=== PATIENT | female | born 1980 | race Caucasian/White ===

== ENCOUNTER 2019-08-13 14:30 | Outpatient (CLI) | payer BC, SELFPAY ==
--- NOTE | ~2019-08-13 | MM_ITS ---
EXAMINATION: MM scrn loni implant BI w sandra HISTORY: Screening mammogram TECHNIQUE: Craniocaudal and mediolateral oblique 3-D tomosynthesis images with implant displacement a nd synthetic 2-D images were generated. Craniocaudal and mediolateral oblique views of the breasts wi thout implant displacement were obtained using full field digital mammography. CAD analysis was submi tted and interpreted. COMPARISON: 05/13/2017 bilateral implant digital screening mammogram BREAST PARENCHYMAL COMPOSITION: There are scattered areas of fibroglandular density. FINDINGS: Status post bilateral augmentation mammoplasty. There is no evidence of suspicious mass, ca lcification, or architectural distortion to suggest malignancy in either breast. There has been no martinez spicious interval change. IMPRESSION: 1. No mammographic evidence of malignancy. 2. Recommend routine screening mammography in one year. BI-RADS Category 1: Negative Reviewed, dictated and finalized at location A.
== END 2019-08-13 14:31 | disposition home or self-care (01) ==
LOC: ANHIMG 14:34
PROVIDERS: Visit Provider Nurse Practitioner Obstetrics & Gynecology
DX: Z12.31 Encounter for screening mammogram for malignant neoplasm of breast (principal)
CPT/HCPCS: 77063; 77067

== ENCOUNTER 2021-07-13 09:19 | Outpatient (CLI) | payer SELFPAY ==
--- NOTE | ~2021-07-13 | MM_ITS ---
EXAMINATION: MM scrn loni implant BI w sandra HISTORY: Screening mammogram TECHNIQUE: Craniocaudal and mediolateral oblique 3-D tomosynthesis images with implant displacement a nd synthetic 2-D images were generated. Craniocaudal and mediolateral oblique views of the breasts wi thout implant displacement were obtained using full field digital mammography. CAD analysis was submi tted and interpreted. COMPARISON: 08/2019, 05/13/2017 bilateral implant screening mammogram examinations BREAST PARENCHYMAL COMPOSITION: The breasts are heterogeneously dense, which may obscure small masses . FINDINGS: Status post bilateral augmentation mammoplasty. There is no evidence of suspicious mass, ca lcification, or architectural distortion to suggest malignancy in either breast. There has been no martinez spicious interval change. IMPRESSION: 1. No mammographic evidence of malignancy. 2. Recommend routine screening mammography in one year. BI-RADS Category 1: Negative Reviewed, dictated and finalized at location A.
== END 2021-07-13 09:20 | disposition home or self-care (01) ==
PROVIDERS: Visit Provider Obstetrics & Gynecology
DX: Z12.31 Encounter for screening mammogram for malignant neoplasm of breast (principal)
CPT/HCPCS: 77063; 77067

== ENCOUNTER 2022-07-31 10:16 | Observation (INO) | payer OTHER, SELFPAY ==
[2022-07-31] VITALS (15 sets, daily range): BP systolic 89–115; BP diastolic 50–79; PULSE 77–97; RESP 15–20; TEMP 36.9–37.2; O2SAT 97–100
--- NOTE | ~2022-07-31 | CT_ITS ---
EXAMINATION: CT soft tissue neck w con DATE: 07/31/2022 11:36 INDICATION: Peritonsillar abscess. TECHNIQUE: Computed tomography (CT) of the neck was performed with 75 mL Omnipaque-350 intravenous co ntrast. Automated exposure control and iterative reconstruction technique were employed. The dose-tamela gth product was 31.31 mGy-cm. COMPARISON: None FINDINGS: There is mild scarring at the lung apices. Right palatine tonsil is enlarged with a 9 x 8 m m area of central low attenuation. There is mucosal thickening in the pharynx on the right. There are no pathologically enlarged lymph nodes. There is kyphosis and mild spondylosis of cervical spine. IMPRESSION: 1. Enlarged right palatine tonsil with 9 mm phlegmon versus early peritonsillar abscess. Reviewed, dictated and finalized at location A.
--- NOTE | 2022-07-31 10:43 | ED.URI ---
HPI - URI/Sore Throat General Chief Complaint: Upper Respiratory Infection Stated Complaint: sore throat Time Seen by Provider: 07/31/22 10:33 History of Present Illness HPI Narrative: 42-year-old female reports with her for evaluation of sore throat, difficulty swallowing and speaking x3 days. Patient reports from Dr. Sanches's office. 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 assists with history and states patient has not been eating or drinking for the past 2 days due to swelling and pain. She is complaining of pain in the right side of her throat, neck and right ear. She reports fevers, body aches and nausea. Denies chest pain, shortness of breath, difficulty breathing, abdominal pain, vomiting or diarrhea. She reports difficulty swallowing her saliva. Related Data Home Medications Medication Instructions Recorded Confirmed buspirone 5 mg tablet 5 mg PO BID PRN Anxiety 07/31/22 07/31/22 Allergies Allergy/AdvReac Type Severity Reaction Status Date / Time No Known Allergies Allergy Verified 07/31/22 16:54 Review of Systems Review of Systems: CONSTITUTIONAL: See HPI EYES: Denies visual changes, redness, or discharge. ENT: See HPI CARDIOVASCULAR: Denies chest pain, palpitations, or edema. RESPIRATORY: Denies cough or dyspnea. GASTROINTESTINAL: Denies abdominal pain, nausea, vomiting, or diarrhea. GENITOURINARY: Denies dysuria or hematuria. SKIN: Denies rash or itching. MUSCULOSKELETAL: Denies back pain, joint pain, or myalgia. NEUROLOGIC: Denies headache, numbness, dizziness, or weakness. PSYCHIATRIC: Denies anxiety or depression. [facility] Past Medical History Medical History (Updated 07/31/22 @ 19:32 by Arely Jones PA-C) Anxiety Surgical History Surgical History (Updated 07/31/22 @ 19:31 by Arely Jones PA-C) No history of previous surgery Family History Family History Father Asthma Diabetes mellitus Heart disease Mother Thyroid disorder Social History Social History (Updated 07/31/22 @ 19:31 by Arely Jones PA-C) Social History: Surrogate medical decision maker: Nicko Wakefield, spouse. Code status: Full code. Smoking status: Never smoker Second hand tobacco smoke exposure: No Alcohol intake: never Substance use: never Substance use type: does not use Lack of Transportation: No Lack of Food: Never True Current Housing: I Have Housing Concerned About Future Housing: No Difficulty Paying Gas/Electric Bills: No Difficulty Paying for Meds: No Currently Unemployed: No Education: Bachelor's Degree Difficulty w/ Childcare or Family Care: No Additional living arrangements comments: Lives with spouse. They have 6 children. 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 Spiritual care concerns: No Exam Narrative: GENERAL: Well-appearing, in no acute distress. HEAD: Normocephalic EYES: PERRLA ENT: Erythema and edema to posterior pharynx and tonsils R>L. Leftward uvular deviation. Trismus noted. Pt tolerating secretions. No airway compromise or difficulty breathing. NECK: Supple. Bilateral cervical lymphadenopathy. CHEST: No respiratory distress. Clear to auscultation, no adventitious breath sounds. HEART: Regular rate and rhythm. No murmur heard. Normal peripheral pulses. ABDOMEN: Soft, nontender, normal active bowel sounds. EXTREMITIES: Normal range of motion. No edema. SKIN: Warm, dry, no rash. NEURO: No focal deficits. Alert and oriented x3. PSYCH: Normal mood and affect. Course Vital Signs Vital signs: Vital Signs Temperature 98.4 F 07/31/22 10:19 Pulse Rate 88 07/31/22 10:19 Respiratory Rate 18 07/31/22 10:19 Blood Pressure 89/50 L 07/31/22 10:19 Pulse Oximetry 100 07/31/22 10:19 Oxygen Delivery Room Air 07/31/22 10:19 Temp
[2022-07-31] MEDS: SODIUM CHLORIDE 0.9% IV 1,000 ML 1000 ML (10:51)
[2022-07-31] MEDS: CLINDAMYCIN 600 MG/D5W 50 ML 600 MG/50 ML PIGGYBACK 100 MG IVPB ×2 (10:52→22:34)
[2022-07-31] MEDS: ONDANSETRON INJ 4 MG/2 ML VIAL IV PUSH (10:55)
[2022-07-31 10:57] LABS: Basophils Percent Auto 0.3 % (0.2-1.2); Eosinophils Percent Auto 0.3 % (0-4.4); Hematocrit 39.3 % (37.0-47.0); Hemoglobin 12.8 g/dL (12.0-15.0); Immature Granulocyte Absolute 0.03 K/mm3 (0.00-0.031); Immature Granulocyte Percent A 0.4 % (0-0.5); Lymphocytes Percent Auto 11.5 % (18.3-44.2); Mean Corpuscular HGB Conc 32.6 g/dl (32-36); Mean Corpuscular Hemoglobin 29.6 pg (26-34); Mean Platelet Volume 10.1 fl (7.4-10.4); Monocytes Absolute Auto 0.6 K/mm3 (0.1-0.6); Monocytes Percent Auto 7.9 % (2.6-8.5); Neutrophils Absolute Auto 5.5 K/mm3 (1.3-6.7); Neutrophils Percent Auto 79.6 % (45.5-73.1); Platelet Count Result 149 k/mm3 (150-375); Red Blood Count 4.32 M/mm3 (4.2-5.4); Red Cell Distribution Width 12.8 % (11.5-14.5)
[2022-07-31 11:10] LABS: Lactic Acid Reflex 0.8 mmol/L (0.7-2.0)
[2022-07-31 11:12] LABS: Alanine Aminotransferase 21 U/L (6-35); Alkaline Phosphatase 58 U/L (38-126); Anion Gap 2 mmol/L (8-16); Aspartate Amino Transferase 26 U/L (14-36); Bilirubin,Total 0.9 mg/dL (0.2-1.3); Blood Urea Nitrogen 12 mg/dL (7-17); Calcium 8.6 mg/dL (8.4-10.2); Carbon Dioxide 29 mmol/L (22-30); Chloride 104 mmol/L (98-107); Estimated Glomerular Filt Rate > 60; Glucose 131 mg/dL (65-110); Monoscreen Negative (Negative); Negative Monotest Control Negative (Negative); Positive Monotest Control Positive (Positive); Potassium 3.6 mmol/L (3.4-5.0); Sodium 135 mmol/L (137-145)
[2022-07-31 11:44] LABS: Beta HCG Quantitative < 2.39 mIU/ML
[2022-07-31 13:17] LABS: Appearance Urine Clear (Clear); Bacteria Urine None Seen /hpf; Bilirubin Urine Negative (Negative); Blood Urine 3+ (Negative); Color Urine Yellow (Yellow); Glucose Urine UA Negative (Negative); Ketones Urine 1+ mg/dL (Negative); Leukocyte Esterase Ur Negative LEU/UL (Negative); Nitrate Urine Negative (Negative); Non Pathogenic Casts 0-2; Protein Urine Negative (Negative); RBC Urine >100 /hpf (0-2); Squamous Epithelial Cell Urine None seen /hpf (Few); Urobilinogen Urine 0.2 mg/dL (<2.0); WBC Urine 0-5 /hpf
[2022-07-31 13:23] LABS: Specific Grav Ur 1.065 (1.001-1.035)
[2022-07-31 13:34] LABS: Add Urine Microscopic? YES
[2022-07-31 14:36] LABS: Influenza A QL RT-PCR Negative (Negative); Influenza B QL RT-PCR Negative (Negative); SARS-CoV-2 RNA PCR Negative (Negative)
[2022-07-31] MEDS: KETOROLAC 15 MG/ML VIAL (*BKC) IV PUSH (15:37)
--- NOTE | 2022-07-31 16:49 | ADMGEN ---
This patient, Camron Wakefield, was admitted to 3 [facility] Surg Room 320-01. Patient/family oriented to hospital policies and general routines including ID bracelet, bed and alarms, visiting hours, pain management, procedures, bathroom and other care routines, personal items, smoking policy, room service/diet, and visiting hours. Information on how to activate the Rapid Response Team has been discussed. Patient/Family are encouraged to report perceived risks to care and to ask questions if they do not understand what they are told or what they should do.
[2022-07-31] MEDS: SODIUM CHLORIDE 0.9% IV 1,000 ML 125 ML IV CONT (18:33)
--- NOTE | 2022-07-31 19:24 | PM.IMHP ---
H&P: HPI History of Present Illness Date/Time: 07/31/22 15:45 Chief Complaint: Sore throat. Narrative: This is a very pleasant and previously healthy 42-year-old female presented to the emergency department from her doctor's office for evaluation of a sore throat. She has not been feeling well for 3 days with a gradually worsening sore throat, swelling, and difficulty swallowing. She has not been able eat or drink for 2 days due to the pain. She is not having difficulty speaking and she was sent to the ER as her voice has been muffled. She also reports subjective fever, body aches, and nausea. She has 6 children and several of them have had similar symptoms. She denies headache, neck ache, difficulties handling secretions, cough, chest pain, shortness a breath, vomiting, and diarrhea. Vital signs have been stable since arrival to the ED. WBC count was normal. She does look a bit dry on her chemistries and urinalysis. She tested negative for mono, influenza, and COVID. CT of the soft tissue of the neck showed enlarged right palatine tonsil with 9 mm phlegmon versus early peritonsillar abscess. ED provider spoke with Dr. Wang, the on-call ENT specialist, and he recommends starting patient on clindamycin and steroids. She can follow-up with him in the office or if her condition worsens he can be consulted to see her in the hospital. Review of Systems Review of Systems: Twelve systems were reviewed and are negative except for as per HPI. [facility] Past Medical History Medical History (Updated 07/31/22 @ 19:32 by Arely Jones PA-C) Anxiety Surgical History Surgical History (Updated 07/31/22 @ 19:31 by Arely Jones PA-C) No history of previous surgery Family History Family History Father Asthma Diabetes mellitus Heart disease Mother Thyroid disorder Social History Social History (Updated 07/31/22 @ 19:31 by Arely Jones PA-C) Social History: Surrogate medical decision maker: Nicko Wakefield, spouse. Code status: Full code. Smoking status: Never smoker Second hand tobacco smoke exposure: No Alcohol intake: never Substance use: never Substance use type: does not use Lack of Transportation: No Lack of Food: Never True Current Housing: I Have Housing Concerned About Future Housing: No Difficulty Paying Gas/Electric Bills: No Difficulty Paying for Meds: No Currently Unemployed: No Education: Bachelor's Degree Difficulty w/ Childcare or Family Care: No Additional living arrangements comments: Lives with spouse. They have 6 children. 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 Spiritual care concerns: No Meds Home Medications and Allergies Home Medications Medication Instructions Recorded Confirmed Type buspirone 5 mg tablet 5 mg PO BID PRN Anxiety 07/31/22 07/31/22 History Allergies Allergy/AdvReac Type Severity Reaction Status Date / Time No Known Allergies Allergy Verified 07/31/22 16:54 Vital Signs Vital Signs - 24 hr 07/31/22 10:19 07/31/22 10:40 07/31/22 12:34 Temperature 98.4 F Pulse Rate 88 97 Respiratory Rate 18 15 Blood Pressure 89/50 L 99/66 L 94/79 L Pulse Oximetry 100 97 Oxygen Delivery Room Air 07/31/22 10:27 07/31/22 10:30 07/31/22 10:46 Temperature Pulse Rate 80 84 85 Respiratory Rate Blood Pressure 96/63 L 99/66 L Pulse Oximetry Oxygen Delivery 07/31/22 11:08 07/31/22 11:15 07/31/22 11:16 Temperature Pulse Rate 77 85 82 Respiratory Rate Blood Pressure 99/68 L Pulse Oximetry Oxygen Delivery 07/31/22 11:38 07/31/22 11:45 07/31/22 12:34 Temperature Pulse Rate 97 89 97 Respiratory Rate Blood Pressure 94/79 L Pulse Oximetry Oxygen Delivery 07/31/22 15:16 07/31/22 15:45 07/31/22 16:40 Temperature 98.9 F Pulse Rate 82 87 77 Respiratory Rate 20 Bl
[2022-07-31] MEDS: KETOROLAC 30 MG/ML VIAL (*BKC) IV PUSH (20:33)
[2022-07-31] MEDS: SODIUM CHLORIDE 0.9% IV 1,000 ML 75 ML IV CONT (22:34)
[2022-07-31] MEDS: DEXAMETHASONE SOD PHOS INJ 4 MG/ML VIAL IV PUSH (22:34)
[2022-08-01] MEDS: KETOROLAC 30 MG/ML VIAL (*BKC) IV PUSH (05:31)
[2022-08-01] MEDS: CLINDAMYCIN 600 MG/D5W 50 ML 600 MG/50 ML PIGGYBACK 100 MG IVPB ×3 (05:36→22:33)
[2022-08-01] MEDS: DEXAMETHASONE SOD PHOS INJ 4 MG/ML VIAL IV PUSH (05:36)
[2022-08-01 06:00] VITALS: BP 98/60; PULSE 78; RESP 16; TEMP 36.2; O2SAT 100
[2022-08-01 06:29] LABS: Hematocrit 37.4 % (37.0-47.0); Hemoglobin 12.1 g/dL (12.0-15.0); Mean Corpuscular HGB Conc 32.4 g/dl (32-36); Mean Corpuscular Volume 92.8 fl (80-100); Mean Platelet Volume 10.1 fl (7.4-10.4); Platelet Count Result 141 k/mm3 (150-375); Red Blood Count 4.03 M/mm3 (4.2-5.4); Red Cell Distribution Width 12.9 % (11.5-14.5); White Blood Count 6.5 K/mm3 (4.5-10.0)
[2022-08-01 06:40] LABS: Anion Gap 4 mmol/L (8-16); Blood Urea Nitrogen 12 mg/dL (7-17); Calcium 8.2 mg/dL (8.4-10.2); Carbon Dioxide 29 mmol/L (22-30); Chloride 106 mmol/L (98-107); Estimated CRCL calculation 90 ml/min; Estimated Glomerular Filt Rate > 60; Glucose 156 mg/dL (65-110); Magnesium 2.3 mg/dL (1.6-2.3); Potassium 4.1 mmol/L (3.4-5.0); Sodium 139 mmol/L (137-145)
[2022-08-01 09:10] VITALS: O2SAT 98
[2022-08-01] MEDS: HYDROcodone/acetaminophen (*CRX) 5-325 MG TABLET 1 TAB PO (12:40)
--- NOTE | 2022-08-01 13:50 | PM.IMPN ---
Progress Note: A&P Assessment and Plan (1) Phlegmonous tonsillitis: Code(s): J03.90 - Acute tonsillitis, unspecified Status: Acute Assessment and Plan: CT scan shows enlarged right palatine tonsil with 9 mm phlegmon versus early peritonsillar abscess. case was discussed with ENT who recommended clindamycin, dexamethasone, outpatient follow-up. Patient has had improvement with antibiotics and steroids. Is now able to manage oral secretions and tolerate solid and liquid intake. Unable to swallow oral pills at this time so will keep patient in the hospital overnight and will continue IV steroids and antibiotics. supportive care to include analgesics as needed. Patient remains afebrile, no leukocytosis. (2) Dehydration: Code(s): E86.0 - Dehydration Status: Acute Assessment and Plan: Secondary to poor p.o. intake due to pain and difficulty swallowing. Patient has been rehydrated and is now tolerating oral intake. Appears euvolemic on exam. Discontinue IV fluids at this time Subjective Date/time seen: 08/01/22 13:50 Interval history: Date of service: 08/01/2022 Camron Wakefield is a 42-year-old female with a history of anxiety who is seen in follow-up for phlegmonous tonsillitis. Patient states that she is feeling improved today. Currently she rates her throat pain is 2/10. She states that she is swallowing better and is able to manage her secretions. She was able to tolerate soft solid foods for breakfast and is swallowing liquids. her right ear pain has resolved. She did have an episode of chills and sweats overnight. She denies any fevers. No nausea or vomiting. She received IV pain medication this morning and has not taken any oral pills yet. She is worried about her ability to swallow pills. Discussed that if patient is able to tolerate p.o. antibiotics and pain medication she can be discharged for outpatient follow-up. Patient requested trial of solid pills for hopeful discharge home. Informed by RN that despite multiple attempts, patient not able to swallow pills. Review of Systems Review of Systems: All systems reviewed & are unremarkable except as noted in HPI and below Exam Narrative: General: Thin, well-appearing 42-year-old female, sitting up in bed, comfortable, NARD Neuro: awake, alert and oriented x4, speech clear, no focal neuro deficits noted HEENMT: normocephalic, atraumatic, EOMI, no cervical lymphadenopathy or tenderness, no drooling, able to speak clearly and manage secretions Respiratory: clear to auscultation bilaterally, nonlabored breathing Cardio: regular rate, regular rhythm with S1-S2 Abdomen: nondistended, normoactive bowel sounds, soft, nontender to palpation Extremities: no edema, erythema, or tenderness to palpation Skin: no rashes or lesions, warm and dry Psych: appropriate mood and affect, judgment and insight intact Objective Data Vital Signs Vital Signs: Vital Signs - 24 hr 07/31/22 15:16 07/31/22 15:45 07/31/22 16:40 Temperature 98.9 F Pulse Rate 82 87 77 Respiratory Rate 20 Blood Pressure 115/73 107/72 104/62 Pulse Oximetry 98 Oxygen Delivery 07/31/22 21:33 07/31/22 20:00 08/01/22 06:00 Temperature 98.5 F 97.2 F L Pulse Rate 87 78 Respiratory Rate 18 16 Blood Pressure 102/70 98/60 L Pulse Oximetry 100 100 Oxygen Delivery Room Air 08/01/22 09:10 Temperature Pulse Rate Respiratory Rate Blood Pressure Pulse Oximetry 98 Oxygen Delivery Room Air Intake/Output Intake/Output: Intake & Output 07/29/22 07/30/22 07/31/22 08/01/22 23:59 23:59 23:59 23:59 Intake Total 1100 390 Output Total 300 800 Balance 800 -410 Meds/Results Medications: Active Medications Generic Name Dose Route Start Last Admin Trade Name Freq PRN Reason Stop Dose Admin Acetaminophen 650 mg 07/31/22 19:36 Acetaminophen 325 Mg Tablet PO Q6H PRN Mild Pain (1-3) or
[2022-08-01 14:00] VITALS: BP 103/62; PULSE 84; RESP 14; TEMP 36.9; O2SAT 99
[2022-08-01] MEDS: ACETAMINOPHEN 325 MG TABLET 650 MG PO (18:33)
[2022-08-01] MEDS: SODIUM CHLORIDE 0.9% IV 1,000 ML 75 ML IV CONT (19:39)
[2022-08-01 22:00] VITALS: BP 101/66; PULSE 71; RESP 16; TEMP 36.6; O2SAT 100
[2022-08-02] MEDS: CLINDAMYCIN 600 MG/D5W 50 ML 600 MG/50 ML PIGGYBACK 100 MG IVPB (05:28)
[2022-08-02] MEDS: ACETAMINOPHEN 325 MG TABLET 650 MG PO (05:40)
[2022-08-02 06:00] VITALS: BP 104/72; PULSE 64; RESP 16; TEMP 36.6; O2SAT 98
[2022-08-02 09:48] VITALS: O2SAT 98
--- NOTE | 2022-08-02 10:46 | PM.DS ---
DS: Admitting Diagnosis Discharge Date 08/02/2022 Admitting Diagnosis phlegmonous tonsillitis DS: Discharge Diagnosis Discharge Diagnosis (1) Phlegmonous tonsillitis: Code(s): J03.90 - Acute tonsillitis, unspecified Status: Acute Assessment and Plan: CT scan showed enlarged right palatine tonsil with 9 mm phlegmon versus early peritonsillar abscess. case was discussed with ENT who recommended clindamycin, steroids, and outpatient follow-up. patient was admitted to the hospital due to inability to swallow oral antibiotics. Patient had clinical improvement with IV antibiotics and steroids. she is able to manage oral secretions, tolerate solid and liquid intake, and swallow oral pills. Spoke with ENT office and follow-up has been arranged on 08/07/2022 at 2:00 p.m. at the [place] office. Patient made aware of appointment and called the office to confirm. She will continue a course of clindamycin to complete 10 days and adjustments can be made per ENT as needed at her follow-up appointment. She will continue p.o. prednisone for 3 additional days to complete a 5 day course of steroids. Supportive care provided and short course of analgesics prescribed. patient and family aware of worrisome signs and symptoms for which to seek care. patient remained afebrile, no leukocytosis. (2) Dehydration: Code(s): E86.0 - Dehydration Status: Acute Assessment and Plan: Secondary to poor p.o. intake due to pain and difficulty swallowing. Patient was rehydrated and is now tolerating oral intake. Is euvolemic on exam. IV fluids Discontinued inpatient educated on need for appropriate oral hydration. DS: Summary Hospital Course Hospital Course: Patient was admitted with phlegmonous tonsillitis due to inability to tolerate oral medications. She was admitted for IV antibiotics, steroids, and pain control. Symptoms improved. Case was discussed with ENT and patient will have prompt outpatient follow-up on 08/07/2022. Overall with significant improvement, felt comfortable with plans for discharge home. Discharged in hemodynamically stable condition on 08/02/2022. Time Spent with Patient Time attestation: Total time spent providing and/or coordinating discharge services: 45 minutes Exam Narrative: General: Thin, well-appearing 42-year-old female, sitting up in bed, comfortable, NARD Neuro: awake, alert and oriented x4, speech clear, no focal neuro deficits noted HEENMT: normocephalic, atraumatic, EOMI, no cervical lymphadenopathy or tenderness, no drooling, able to speak clearly and manage secretions Respiratory: clear to auscultation bilaterally, nonlabored breathing Cardio: regular rate, regular rhythm with S1-S2 Abdomen: nondistended, normoactive bowel sounds, soft, nontender to palpation Extremities: no edema, erythema, or tenderness to palpation Skin: no rashes or lesions, warm and dry Psych: appropriate mood and affect, judgment and insight intact DS: Data Imaging Radiologist's impression: ITS Impressions Soft Tissue Neck CT 07/31/22 11:38 IMPRESSION: 1. Enlarged right palatine tonsil with 9 mm phlegmon versus early peritonsillar abscess. Discharge Plan Discharge Attending physician on discharge: Loretta Murrieta Consulting providers: Verónica Bray Discharging Clinician: Jennifer Murphy Patient Disposition: Home, Self-Care Activity: as tolerated Diet: other - see discharge instructions Discharge Instructions: Hospitalist discharge instructions: Stick to a soft/bite sized/easy to chew diet call your doctor or seek medical care if you have worsened throat pain, difficulty swallowing, inability to tolerate solids or liquids, inability to manage oral secretions, drooling, fevers, chills, neck swelling Call your doctor or proceed to the emergency department if you have any additional worrisome signs or symptoms. Call 911 if you hav
== END 2022-08-02 11:45 | disposition home or self-care (01) ==
LOC: ANHED 11:02 → ANH3MEDSUR 16:17
PROVIDERS: Physician Assistant; Admitting Provider Student in an Organized Health Care Education/Training Program; Emergency Provider Physician Assistant; PCP Family Medicine; Visit Provider Physician Assistant
DX: J03.90 Acute tonsillitis, unspecified (principal); E86.0 Dehydration; Z20.822 Contact with and (suspected) exposure to COVID-19; R63.0 Anorexia; Z68.20 Body mass index [BMI] 20.0-20.9, adult; R50.9 Fever, unspecified; M79.10 Myalgia, unspecified site; F41.9 Anxiety disorder, unspecified; R11.0 Nausea; Z79.899 Other long term (current) drug therapy
CPT/HCPCS: 36415; 70491; 80048; 80053; 81001; 83605; 83735; 84702; 85025; 85027; 86308; 87636; 96361; 96365; 96375; 96376; 99285; A9270; G0378; J1100; J1885; J2405; J7030; Q9967

== ENCOUNTER 2022-09-21 14:39 | Outpatient (CLI) | payer OTHER, SELFPAY ==
--- NOTE | ~2022-09-21 | MM_ITS ---
EXAMINATION: MM scrn loni implant BI w sandra HISTORY: Screening mammogram TECHNIQUE: Craniocaudal and mediolateral oblique 3-D tomosynthesis images with implant displacement a nd synthetic 2-D images were generated. Craniocaudal and mediolateral oblique views of the breasts wi thout implant displacement were obtained using full field digital mammography. CAD analysis was submi tted and interpreted. COMPARISON: 07/13/2021, 08/2019, 05/13/2017 bilateral implant screening mammogram examinations BREAST PARENCHYMAL COMPOSITION: There are scattered areas of fibroglandular density. FINDINGS: Status post bilateral augmentation mammoplasty. There is no evidence of suspicious mass, ca lcification, or architectural distortion to suggest malignancy in either breast. There has been no martinez spicious interval change. IMPRESSION: 1. No mammographic evidence of malignancy. 2. Recommend routine screening mammography in one year. BI-RADS Category 1: Negative Reviewed, dictated and finalized at location A.
== END 2022-09-21 14:40 | disposition home or self-care (01) ==
LOC: ANHIMG 14:40
PROVIDERS: PCP Family Medicine; Visit Provider Nurse Practitioner Obstetrics & Gynecology
DX: Z12.31 Encounter for screening mammogram for malignant neoplasm of breast (principal)
CPT/HCPCS: 77063; 77067

== ENCOUNTER 2024-02-13 14:33 | Outpatient (CLI) | payer OTHER, SELFPAY ==
--- NOTE | ~2024-02-13 | MM_ITS ---
EXAMINATION: MM scrn loni implant BI w sandra HISTORY: Screening mammogram TECHNIQUE: Craniocaudal and mediolateral oblique 3-D tomosynthesis images with implant displacement a nd synthetic 2-D images were generated. Craniocaudal and mediolateral oblique views of the breasts wi thout implant displacement were obtained using full field digital mammography. CAD analysis was submi tted and interpreted. COMPARISON: Comparison to multiple prior studies sequentially, with oldest reviewed study dated 07/2017. BREAST PARENCHYMAL COMPOSITION: Not dense: There are scattered areas of fibroglandular density. FINDINGS: There is no evidence of suspicious mass, calcification, or architectural distortion to sugg est malignancy in either breast. There has been no suspicious interval change. IMPRESSION: 1. No mammographic evidence of malignancy. 2. Recommend routine screening mammography in one year. BI-RADS Category 1: Negative Reviewed, dictated and finalized at location B. 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
== END 2024-02-13 14:34 | disposition home or self-care (01) ==
LOC: ANHIMG 14:34
PROVIDERS: PCP Family Medicine; Visit Provider Obstetrics & Gynecology
DX: Z12.31 Encounter for screening mammogram for malignant neoplasm of breast (principal)
CPT/HCPCS: 77063; 77067

== ENCOUNTER 2025-02-18 09:00 | Outpatient (CLI) | payer OTHER, SELFPAY ==
--- NOTE | ~2025-02-18 | MM_ITS ---
EXAMINATION: MM screening loni BI w sandra HISTORY: Screening. TECHNIQUE: Craniocaudal and mediolateral oblique 3-D tomosynthesis images were obtained and synthetic 2-D images were generated. CAD analysis was submitted and interpreted. COMPARISON: 2023, 2022, and 2021. BREAST PARENCHYMAL COMPOSITION: Not Dense: There are scattered areas of fibroglandular FINDINGS: There is/are retropectoral silicone implants. The presence of implants decreases the sensitivity of mammography. No suspicious masses are seen. There are no suspicious calcifications. No unexplained architectural distortion is seen. There are no skin or nipple abnormalities identified. There is no adenopathy seen on the images submitted. IMPRESSION: No mammographic evidence to suggest malignancy is seen. The patient may return to screening mammography as per ACR guidelines. BI-RADS 1 - Negative. Reviewed, dictated and finalized at location C. 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
== END 2025-02-18 09:01 | disposition home or self-care (01) ==
LOC: ANHFOHIMG 09:02
PROVIDERS: PCP Nurse Practitioner Family; Visit Provider Obstetrics & Gynecology
DX: Z12.31 Encounter for screening mammogram for malignant neoplasm of breast (principal)
CPT/HCPCS: 77063; 77067